=== PATIENT | female | born 1965 | race African-American/Black ===

== ENCOUNTER 2017-10-12 11:49 | Emergency (ER) | payer OTHER ==
[~2017-10-12] VITALS: Ht 162.6 cm; Wt 97.3 kg
[~2017-10-12 11:49] MED LIST: DIVA125T2 PO; HYDR-305 PO; LORA0.5T2 PO; OMEP20 PO; OXCA300T PO; ZIPR80CA2 PO
[2017-10-12] MEDS ORDERED: LEVE250T55 PO (11:55)
[2017-10-12 11:59] VITALS: BP 152/96
[2017-10-12] MEDS ORDERED: KETOROLAC TROMETHAMINE 30 MG/ML VIAL IM ONE (13:00)
[2017-10-12] MEDS ORDERED: HYDROCODONE/ACETAMINOPHEN 5-325 MG TABLET PO ONE (13:00)
== END 2017-10-12 13:10 | disposition home or self-care (01) ==
LOC: EMS 11:49
DX: G43.909 Migraine, unspecified, not intractable, without status migrainosus (principal); R03.0 Elevated blood-pressure reading, without diagnosis of hypertension; F17.210 Nicotine dependence, cigarettes, uncomplicated; J45.909 Unspecified asthma, uncomplicated; E11.9 Type 2 diabetes mellitus without complications; Z90.49 Acquired absence of other specified parts of digestive tract; Z88.0 Allergy status to penicillin
CPT/HCPCS: 82962; 96372; 99283; J1885